=== PATIENT | female | born 1985 | race Caucasian/White ===

== ENCOUNTER 2017-02-10 07:03 | Day surgery (SDC) | payer BC ==
--- NOTE | ~2017-02-10 | ER ---
ADMIT: 02/10/2017 RM/LOC: [facility] MR#: [id number] [address] [id number] RADHA VELEZ [address] [place] [id number] Emergency Room Report SEX: F AGE: 31 : 1985 DATE: 02/10/2017 This 31-year-old female, who had an LP done at [facility] for neuralgia. She requested working up for headache. She got home, shortly thereafter developed a headache which intensifies with positional changes. Much worse when she stands or sits. Improved by lying down. She has tried caffeine, tried increasing the fluid intake to no avail. PHYSICAL EXAMINATION: GENERAL: Reveals a 31-year-old female, complaining of a headache. Again she said this is not severe when she is lying down, but since she stood up, she said it was intense and describes it as throbbing. LUNGS: Clear to auscultation. CARDIOVASCULAR: Regular rate and rhythm. No murmurs, rubs, or gallops. ABDOMEN: Soft, nontender. Positive bowel sounds. No masses, guarding, or rebound. EXTREMITIES: Unremarkable. She is given 2 L of fluid in the Emergency Department as well as Toradol. Continued to complain of a headache when she would stand up or sit. Discussed care with Dr. Alvaerz who agreed to assess her for the possibility of a blood patch. DIAGNOSIS: Spinal headache. Saad Ghosh MD/ francis JOB #: [id number] CC: Mellisa Alvarez MD, Attending Physician Mellisa Alvarez MD, Family Physician
--- NOTE | 2017-02-19 11:37 | OR ---
ADMIT: 02/10/2017 RM/LOC: [facility] MR#: [id number] [address] [id number] RADHA VELEZ [address] [place] [id number] Operative/Delivery Room Report SEX: F AGE: 31 : 1985 SURGERY DATE: 02/10/2017 SURGEON: Terence Denis MD PROCEDURE: Epidural blood patch. PREOPERATIVE DIAGNOSIS: Postdural puncture headache. POSTOPERATIVE DIAGNOSIS: Postdural puncture headache. INDICATION FOR PROCEDURE: The patient is a 31-year-old female who had a lumbar puncture done in [place] 2 days ago. The patient notes that since yesterday, she has had a severe headache. This headache is present at all times, but made worse by sitting or standing up. It is somewhat relieved by lying flat. The patient describes the headache as starting in the frontal region and radiates all the way back into her neck while she is sitting. The patient does describe some blurry vision with this headache. The lumbar puncture was done as a part of an evaluation for possible multiple sclerosis. The patient denies being on blood thinners or having any bleeding disorders. DESCRIPTION OF THE PROCEDURE: After informed consent was obtained, including explanation of all risks and benefits such as failure of the procedure to relieve the headache, back pain, inadvertent second dural puncture, infection, bleeding, or inability to perform the procedure. The patient was informed that postdural puncture headache do go away on their own and do not require treatment. However, she elected to proceed with this treatment at this time. The patient was placed in the sitting position. Sterile prep and drape were applied to the low back area. An 18-gauge Tuohy needle was inserted at approximately L3-4 interspace. Loss of resistance to saline was obtained at approximately 7 cm. Sterilely, blood was drawn from the patient's left antecubital area and passed sterilely. The blood was then slowly injected into the epidural space. The patient noted some tightening in her low back, however, no severe pain or discomfort. The needle was withdrawn and the patient was returned to the supine position. She will remain supine for an hour and be discharged to home as tolerated. She can follow up with her regular doctor as indicated. It was explained to her that there is a chance of the headache coming back and a second blood patch would be offered depending on the timing of recurrence. The patient was instructed to come to the emergency room or call with any neurological symptoms such as numbness or weakness in her lower extremities, loss of control of bowel or bladder function, or severe back pain. Terence Denis MD/ francis JOB #: [id number] CC: Mellisa Alvarez, Attending Physician ADMIT: 02/10/2017 RM/LOC: [facility] MR#: [id number] [address] [place] [id number] [address]HA [address] [id number] Operative/Delivery Room Report SEX: F AGE: 31 : 1985 Mellisa Alvarez, Family Physician
== END 2017-02-10 12:08 | disposition home or self-care (01) ==
LOC: ER 07:03 → SSS 09:24
PROC: 3E0S3GC Introduction of Other Therapeutic Substance into Epidural Space, Percutaneous Approach (ICD-10-PCS; principal; 2017-02-10)
DX: G97.1 Other reaction to spinal and lumbar puncture (principal)